=== PATIENT | male | born 1950 | race Caucasian/White ===

== ENCOUNTER 2018-04-11 15:53 | Emergency (ER) | payer OTHER, BC ==
--- NOTE | 2018-04-11 16:09 | PDOC ---
History of Present Illness - General Chief Complaint: Weakness Stated Complaint: DEHYDRATED Time Seen by Provider: 04/11/18 16:08 - History of Present Illness Initial Comments: 68 year old male with PMH of colon cancer (s/p resection and remission), lung CA (right lower lobe with possible mets to pancreas and brain, currently on chemotherapy and steroids , last dose chemo ), and HLD presenting with dehydration, nausea, and severely decreased PO intake. He has been struggling with his appetite ever since he was diagnosed one year ago but it has acutely worsened during the round of chemo. His stool has been loose since his colonic resection but these last few days he has noted diarrhea. Patient and family deny fevers, chills, or other symptoms. 04/11/18 16:49 Past History - Past Medical History Allergies/Adverse Reactions: Allergies Allergy/AdvReac Type Severity Reaction Status Date / Time No Known Drug Allergies Allergy Verified 04/11/18 16:02 Home Medications: Ambulatory Orders Acetaminophen with Codeine [Acetaminophen-Codeine Solution] 15 ml PO Q4H Albuterol Sulfate Inhaler - [Ventolin Hfa Inhaler -] 2 inh PO BID 04/11/18 Carboplatin 04/11/18 Codeine Phosphate/Guaifenesin [Guaifenesin-Codeine Syrup] 10 ml PO Q4H PRN 04/11 Etoposide 04/11/18 Prednisone [Deltasone] 20 mg PO DAILY 04/11/18 Anemia: No Asthma: No Cancer: Yes (COLON) Cardiac Disorders: No CVA: No COPD: Yes CHF: No Dementia: No Diabetes: No GI Disorders: Yes (HEARTBURN) Disorders: No HTN: No Hypercholesterolemia: Yes Liver Disease: No Seizures: No Thyroid Disease: No - Surgical History Abdominal Surgery: No Appendectomy: No Cardiac Surgery: No Cholecystectomy: No Lung Surgery: No Neurologic Surgery: No Orthopedic Surgery: Yes (RIGHT CARPAL TUNNEL) - Suicide/Smoking/Psychosocial Hx Smoking History: Current every day smoker Have you smoked in the past 12 months: Yes Number of Cigarettes Smoked Daily: 5 'Breaking Loose' booklet given: 10/11/15 Hx Alcohol Use: Yes (SOCIAL) Drug/Substance Use Hx: No Substance Use Type: Alcohol ED Treatment Course - LABORATORY CBC & Chemistry Diagram: 04/11/18 17:20 04/11/18 17:20 Medical Decision Making - Medical Decision Making 68 year old on chemo for his lung CA (with possible mets to brain and pancreas) presenting with dehydration, clinically and on labs. Patient also has a worsening cough since the initiation of chemotherapy. Labs similar to previous values displayed to us from the [facility] patient portal (WBC 19). CXR sjhowing medial, upper, and lower lobe opacities in the right lung but similar to CT results displayed to us from the [facility] portal. Patient much improved after 2 L NS. Patient and family would like to go home. We discussed following up at [facility] if his symptoms get worse and discussing his appetite depression with his oncologist. 04/11/18 18:38 *DC/Admit/Observation/Transfer Diagnosis at time of Disposition: Dehydration - Discharge Dispostion Disposition: HOME Condition at time of disposition: Improved Decision to Admit order: No - Referrals Referrals: Armando Aparicio MD [Primary Care Provider] - - Patient Instructions Printed Discharge Instructions: DI for Dehydration -- Adult, DI for Poor Appetite Additional Instructions: Please try to encourage eating any foods that he finds appetizing and keep water by him at all times to encourage fluid intake. If his symptoms get worse, please take him to [facility] as they have all of his information. Please return to the ED if you have any issues that you feel cannot wait for the trip to [facility]. - Post Discharge Activity
--- NOTE | 2018-04-11 16:11 | PDOC ---
Attending Attestation - Resident Resident Name: Darlin Roland - ED Attending Attestation I have performed the following: I have examined & evaluated the patient, The case was reviewed & discussed with the resident, I agree w/resident's findings & plan, Exceptions are as noted - HPI HPI: 04/11/18 17:14 Patient with metastatic lung cancer, involving the GI tract in the brain, recently begun on second course of chemotherapy this week, administered IV on Friday and . Since yesterday he has had watery diarrhea, with increased cough and shortness of breath. There is been no nausea or vomiting but he is refusing to eat and drink due to anorexia, in spite of steroids administered to increase his appetite. 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 He is treated at [facility] in [place], but hospitalizations and imaging studies are done in [place]. His local primary physician is Dr. Velazquez - Physicial Exam PE: 04/11/18 17:17 Physical exam: Alert and oriented cachectic but in no acute distress cooperative Afebrile, 92/64, 116 regular, 30 and mildly labored, O2 sat 91 Mucous membranes dry. ENT clear Neck supple without bruit mass or nodes Absent breath sounds on the right, decreased but audible breath sounds on the left, without wheezes rales or rhonchi. CV regular without 110 without murmur rub or gallop pulses full and symmetric no JVD or edema no bruits Abdomen nondistended, bowel sounds normal. Soft without mass or organomegaly. There is mild diffuse tenderness without guarding or rebound. Extremities no CCE Skin with poor turgor but no distinct rash Neurological intact. Gait stable and unimpaired 04/11/18 17:17 - Medical Decision Making 04/11/18 17:21 Assessment: Status post reinitiation of chemotherapy, finished on , now with diarrhea, generalized weakness, malaise, and anorexia. Also with increased cough and shortness of breath, primarily with exertion Plan: CBC and chemistries, chest x-ray, IV fluids. Correct any evident electrolyte deficiencies. Observation and further management depending on results 04/11/18 18:39 The patient feels much better after 2 L of fluids. He is ambulatory, in no pain , cough is controlled. White blood count is 19.8, down from 25 on . There is a left shift and he is on steroids, so this is likely leukemoid reaction to prednisone. BUNs 20, creatinine 0.6. Otherwise CBC and chemistry without significant abnormalities Chest x-ray shows extensive disease in the right lung, but with no appreciable effusion and with some aeration. The left lung is clear. It isn't possible to rule out a superimposed infiltrate on the right without a comparison x-ray or CT , which are at [facility], but acute infection seems unlikely. Patient will continue his steroids, cough suppressant, hydration and nutritional support. To see his doctor at [facility] in 24-48 hours if his condition deteriorates, return to ER as needed. Discharged fully ambulatory with his family to follow-up as directed
[2018-04-11 16:16] VITALS: BP 92/64; PULSE 116; TEMP 98.9
[2018-04-11] MEDS ORDERED: SODIUM CHLORIDE 0.9% 500 ML INFUS.BAG IV ONE ×2 (16:34→18:02)
[2018-04-11 17:43] VITALS: BMI 16.9
[2018-04-11 17:49] LABS: ALBUMIN 2.4 g/dl (3.5-5.0); ALK PHOS 83 U/L (32-92); ANION GAP 8 MMOL/L (8-16); BILIRUBIN,TOTAL 0.8 mg/dl (0.2-1.0); BLOOD UREA NITROGEN 20 mg/dl (7-18); CALCIUM 8.2 mg/dl (8.4-10.2); CHLORIDE 100 mmol/L (98-107); CO2 26 mmol/L (22-28); CREATININE 0.6 mg/dl (0.6-1.3); GLUCOSE,RANDOM 98 mg/dl (74-106); POTASSIUM 3.8 mmol/L (3.5-5.1); SGOT/AST 25 U/L (10-42); SGPT/ALT 27 U/L (10-40); SODIUM 134 mmol/L (136-145); TOT PROT 5.6 g/dl (6.4-8.3)
[2018-04-11 17:54] LABS: HEMATOCRIT 38.4 % (35.4-49); HEMOGLOBIN 12.5 GM/dl (11.7-16.9); MCH 31.7 pg (25.7-33.7); MCHC 32.7 g/dl (32.0-35.9); MEAN PLT VOLUME 7.9 fl (7.5-11.1); PLATELET COUNT 248 K/MM3 (134-434); RBC 3.96 M/mm3 (4.00-5.60); RDW 12.9 % (11.9-15.9); WHITE BLOOD COUNT 19.8 K/mm3 (4.0-10.8)
[2018-04-11 18:40] LABS: ANISOCYTOSIS OCCASIONAL; PLATELET ESTIMATE ADEQUATE
== END 2018-04-11 18:50 | disposition home or self-care (01) ==
LOC: FER 15:53
PROC: 3E0337Z Introduction of Electrolytic and Water Balance Substance into Peripheral Vein, Percutaneous Approach (ICD-10-PCS; principal; 2018-04-11)
DX: E86.0 Dehydration (principal); Z85.118 Personal history of other malignant neoplasm of bronchus and lung; J44.9 Chronic obstructive pulmonary disease, unspecified; R12 Heartburn; E78.00 Pure hypercholesterolemia, unspecified; F17.210 Nicotine dependence, cigarettes, uncomplicated
CPT/HCPCS: 36415; 71046-TC-FY; 80053; 85025; 99284-25